=== PATIENT | female | born 1965 | race African-American/Black ===

== ENCOUNTER 2016-12-20 17:44 | Emergency (ER) | payer OTHER ==
[~2016-12-20] VITALS: Ht 157.5 cm; Wt 68.0 kg
[~2016-12-20 17:44] MED LIST: ATORVASTATIN CA10 MG ORAL; AZITHROMYCIN250 MG ORAL; BENAZEPRIL HCL5 MG ORAL; CLINDAMYCIN HC150 MG ORAL; GUAIFENESIN-CO118 M1 ORAL; IBUPROFEN600 MG ORAL; JANUVIA100 MG ORAL; METFORMIN HCL850 M1 ORAL; NORCO 5-325 TA1 EACH ORAL; PROMETHAZINE-C118 M1 ORAL
[2016-12-20 17:48] VITALS: BP 149/90
[2016-12-20] MEDS ORDERED: Albuterol ud Inhalation HHN ONE (18:00)
[2016-12-20 19:54] LABS: HEMATOCRIT 47.7 % (37.0-47.0); HEMOGLOBIN 15.2 G/DL (12.0-16.0); MEAN CORPUSCULAR VOLUME 89 FL (80-99); PLATELET COUNT 260 K/UL (150-450); RED BLOOD COUNT 5.37 M/UL (4.20-5.40); RED CELL DISTRIBUTION WIDTH 11.4 % (11.6-14.8); WHITE BLOOD COUNT 7.4 K/UL (4.8-10.8)
[2016-12-20 20:16] LABS: ANION GAP 9 mmol/L (5-15); BLOOD UREA NITROGEN 14 mg/dL (7-18); CARBON DIOXIDE 27 MMOL/L (21-32); CHLORIDE 107 MMOL/L (98-107); POTASSIUM 3.6 MMOL/L (3.5-5.1); SODIUM 143 MMOL/L (136-145)
[2016-12-20 20:23] VITALS: BP 122/91
[2016-12-20 20:29] LABS: ALANINE AMINOTRANSFERASE 16 U/L (12-78); ALBUMIN 3.5 G/DL (3.4-5.0); ALBUMIN/GLOBULIN RATIO 0.9 (1.0-2.7); ALKALINE PHOSPHATASE 54 U/L (46-116); ASPARTATE AMINO TRANSFERASE 12 U/L (15-37); BILIRUBIN,TOTAL 0.1 MG/DL (0.2-1.0)
[2016-12-20] MEDS ORDERED: LORATADINE10 M2 PO (20:36)
[2016-12-20] MEDS ORDERED: QVAR7.3 GM INH (20:36)
[2016-12-20] MEDS ORDERED: ZITHROMAX250 MG ORAL (20:36)
[2016-12-20] MEDS ORDERED: ALBUTEROL SULF8.5 GM INH (20:36)
[2016-12-20 20:48] VITALS: BP 122/91
--- NOTE | 2016-12-20 21:43 | Emergency Room Report ---
History of Present Illness General Chief Complaint: Chest Pain Source: Patient, Medical Record Present Illness HPI 51 y/o female c/o URI sxs x 5-6 weeks with chest pressure x 3 weeks. Assoc sxs include nasal congestion, cough, chest congestion, chest tightness, and shortness of breath. States she is not taking medications for her sxs. States she has a hx of DM but denies any hx of RI or CHF. States she feels like something is sitting on her chest. Denies any current n/v/f/c/d, abd pain, back pain, neck pain, photophobia, phonophobia, sore throat, or headache. Allergies: Coded Allergies: No Known Allergies (Unverified , 10/14/12) Patient History Past Medical History: see triage record Pertinent Family History: none Now: No Immunizations: UTD Reviewed Nursing Documentation: PMH: Agreed, PSxH: Agreed Nursing Documentation-PMH Past Medical History: No History, Except For Hx Cardiac Problems: No Hx Hypertension: Yes Hx Pacemaker: No Hx Asthma: No Hx COPD: No Hx Diabetes: Yes Hx Cancer: No Hx Gastrointestinal Problems: No Hx Dialysis: No History Of Psychiatric Problem: No Hx Neurological Problems: No Hx Cerebrovascular Accident: No Hx Seizures: No Review of Systems All Other Systems: negative except mentioned in HPI Physical Exam Vital Signs Date Time Temp Pulse Resp B/P (MAP) Pulse Ox O2 Delivery O2 Flow Rate FiO2 12/20/16 17:48 98.1 82 16 149/90 98 Room Air Sp02 EP Interpretation: reviewed, normal General Appearance: alert, GCS 15, non-toxic, mild distress, other - uncomfortable Head: normocephalic, atraumatic Eyes: bilateral eye normal inspection, bilateral eye PERRL ENT: hearing grossly normal, normal pharynx, no angioedema, normal voice, TMs + canals normal, nasal congestion Neck: full range of motion, supple/symm/no masses Respiratory: chest non-tender, lungs clear, normal breath sounds, speaking full sentences, other - increased respitory effort Cardiovascular #1: regular rate, rhythm, no edema Musculoskeletal: back normal, gait/station normal, normal range of motion, non- tender, calf tenderness Neurologic: alert, oriented x3, responsive, motor strength/tone normal, sensory intact, speech normal Psychiatric: judgement/insight normal, memory normal, mood/affect normal, no suicidal/homicidal ideation Skin: normal color, no rash, warm/dry, well hydrated Lymphatic: no adenopathy Medical Decision Making PA Attestation Dr. James is my supervising physician with whom patient management has been discussed with. Diagnostic Impression: Primary Impression: Community acquired pneumonia Qualified Codes: J18.9 - Pneumonia, unspecified organism ER Course Pt. presents to the ED c/o of cough and chest tightness Ddx considered but are not limited to CHF, RI, PE, sinusitis, bronchitis, pneumonia, viral upper respiratory tract infection Vital signs: are WNL, pt. is afebrile H&PE are most consistent with clinical pneumonia ORDERS / ED INTERVENTIONS: My Orders - JYOTHI ROSE Procedure Category Date Status Time Vital Signs CARE 12/20/16 Transmitted 17:55 Ekg Tracing Only CARD 12/20/16 Logged 17:55 Cardiac Monitoring CARE 12/20/16 Transmitted 17:55 Ed Pulse Oximetry CARE 12/20/16 Transmitted 17:55 Activity / Weight CARE 12/20/16 Transmitted Bearing 17:55 Xray Chest 1v RAD 12/20/16 Taken 17:55 Rhythm Strip CARE 12/20/16 Transmitted 17:55 Albuterol Hhn PHA 12/20/16 Complete (Proventil) 18:00 Hand Held Nebulizer RESP 12/20/16 Transmitted 17:55 Cbc W/ Differential LAB 12/20/16 Complete 18:33 CMP LAB 12/20/16 Complete 18:33 Troponin I LAB 12/20/16 Complete 18:33 Pro B Type Naturetic LAB 12/20/16 Complete Peptide 18:33 D-Dimer LAB 12/20/16 Complete 18:33 DISCHARGE: Patient was given albuterol treatment and states subjectively it did not change her symptoms. At this point we performed cardiac workup which was negative. Patient is sleeping at bedside comfortably and states she feels better. At this time pt. is stable for d/c to home. Will treat for clinical pneumonia although CXR appeared clear. Will provide printed patient care instructions, and any necessary prescriptions. Care plan and follow up instructions have been discussed with the patient prior to discharge. EKG Diagnostic Results Rate: normal Rhythm: NSR ST Segments: no acute changes Chest X-Ray Diagnostic Results Chest X-Ray Diagnostic Results : Chest X-Ray Ordered: Yes # of Views/Limited/Complete: 1 View Indication: Shortness of Breath EP Interpretation: Yes PA Xray: Interpretation reviewed, by supervising MD, and agrees with findings. Interpretation: no consolidation, no effusion, no pneumothorax, no acute cardiopulmonary disease Impression: Other - Clinical pneumonia Electronically Signed by: Jyothi Rose PA-C Last Vital Signs Date Time Temp Pulse Resp B/P (MAP) Pulse Ox O2 Delivery O2 Flow Rate FiO2 12/20/16 20:48 98.1 81 20 122/91 100 Room Air Disposition: HOME, SELF-CARE Condition: Improved Scripts Beclomethasone Dipropionate 40MCG Oral Inh (QVAR 40*) 7.3 Gm Aer.w.adap 2 PUFFS INH TWICE A DAY for 10 Days, #1 UNIT 0 Refills Prov: JYOTHI ROSE.AStephy 12/20/16 Loratadine (LORATADINE) 10 Mg Tablet 10 MG PO DAILY for 14 Days, #14 TAB Prov: JYOTHI ROSE.A. 12/20/16 Albuterol Sulfate* (ALBUTEROL SULFATE MDI*) 8.5 Gm Hfa.aer.ad 2 PUFF INH Q4H, #1 INH 0 Refills Prov: JYOTHI ROSE P.A. 12/20/16 Azithromycin* (ZITHROMAX*) 250 Mg Tablet 250 MG ORAL as directed for 5 Days, #1 PACK 0 Refills Take two tables once daily for 1 day, then one tablet once daily for 4 days. Prov: JYOTHI ROSE.AStephy 12/20/16 JYOTHI ROSE Dec 20, 2016 21:43
--- NOTE | 2016-12-21 09:48 | Diagnostic Imaging Report ---
Indication: COUGH Comparison: 03/09/2012 chest one view Findings: Single view of the chest shows a normal cardiomediastinal silhouette. Pulmonary vasculature is normal. Lung are clear. Soft tissues and osseous structures are within normal limits. Patient is slightly rotated. Impression: No acute chest disease
--- NOTE | 2016-12-28 15:54 | Cardiology Report ---
APPROVED REPORT EKG Measurement Heart [id number] [place] 154P44 [id number] Normal sinus rhythm Anterior infarct, age undetermined Abnormal ECG
--- NOTE | 2016-12-28 15:54 | Cardiology Report ---
APPROVED REPORT EKG Measurement Heart [id number] [place] 154P44 [id number] Normal sinus rhythm Anterior infarct, age undetermined Abnormal ECG
--- NOTE | 2016-12-28 15:54 | Cardiology Report ---
APPROVED REPORT EKG Measurement Heart [id number] [place] 154P44 [id number] Normal sinus rhythm Anterior infarct, age undetermined Abnormal ECG
== END 2016-12-20 20:55 | disposition home or self-care (01) ==
LOC: EMR 20:53
DX: J18.8 Other pneumonia, unspecified organism (principal); I10 Essential (primary) hypertension; E11.9 Type 2 diabetes mellitus without complications
CPT/HCPCS: 36415; 71010; 80053; 83880; 84484; 85007; 85025; 85379; 93005; 94664; 99284

== ENCOUNTER 2017-03-22 15:58 | Emergency (ER) | payer OTHER ==
[~2017-03-22] VITALS: Ht 154.9 cm; Wt 70.3 kg
[~2017-03-22 15:58] MED LIST changes: +ALBUTEROL SULF8.5 GM INH; +LORATADINE10 M2 PO; +QVAR7.3 GM INH; +ZITHROMAX250 MG ORAL
[2017-03-22] MEDS ORDERED: PRILOSEC10 M1 ORAL (16:35)
[2017-03-22] MEDS ORDERED: METFORMIN HCL500 M1 ORAL (16:35)
[2017-03-22 16:36] VITALS: BP 126/84
[2017-03-22 16:38] LABS: BASOPHILS % (AUTO) 1.5 % (0.0-2.0); EOSINOPHILS % (AUTO) 1.5 % (0.0-3.0); HEMATOCRIT 50.3 % (37.0-47.0); HEMOGLOBIN 16.9 G/DL (12.0-16.0); LYMPHOCYTES % (AUTO) 42.8 % (20.0-45.0); MEAN CORPUSCULAR VOLUME 85 FL (80-99); MONOCYTES % (AUTO) 5.5 % (1.0-10.0); NEUTROPHILS % (AUTO) 48.6 % (45.0-75.0); PLATELET COUNT 248 K/UL (150-450); RED BLOOD COUNT 5.93 M/UL (4.20-5.40); RED CELL DISTRIBUTION WIDTH 11.3 % (11.6-14.8); WHITE BLOOD COUNT 7.9 K/UL (4.8-10.8)
[2017-03-22 16:54] LABS: ANION GAP 10 mmol/L (5-15); BLOOD UREA NITROGEN 17 mg/dL (7-18); CALCIUM 9.5 MG/DL (8.5-10.1); CARBON DIOXIDE 25 MMOL/L (21-32); CHLORIDE 103 MMOL/L (98-107); CREATININE 0.9 MG/DL (0.55-1.30); SODIUM 138 MMOL/L (136-145)
[2017-03-22 16:58] LABS: ALANINE AMINOTRANSFERASE 18 U/L (12-78); ALBUMIN 3.8 G/DL (3.4-5.0); ALKALINE PHOSPHATASE 68 U/L (46-116); ASPARTATE AMINO TRANSFERASE 9 U/L (15-37); BILIRUBIN,TOTAL 0.2 MG/DL (0.2-1.0)
--- NOTE | 2017-03-22 17:42 | Emergency Room Report ---
History of Present Illness General Chief Complaint: General Complaint Source: Patient Present Illness HPI Patient 51 female presented after increased blood sugar. Patient gradual onset of symptoms. She noted her blood sugar to be somewhat elevated at work. Patient reported having increased urine frequency. She denies any fever. She reports having been a smoker. She reports sugar greater than 400 after working Allergies: Coded Allergies: No Known Allergies (Unverified , 10/14/12) Patient History Past Medical History: see triage record Past Surgical History: unable to obtain Reviewed Nursing Documentation: PMH: Agreed, PSxH: Agreed Nursing Documentation-PMH Hx Cardiac Problems: No Hx Hypertension: Yes Hx Pacemaker: No Hx Asthma: No Hx COPD: No Hx Diabetes: Yes Hx Cancer: No Hx Gastrointestinal Problems: No Hx Dialysis: No Hx Neurological Problems: No Hx Cerebrovascular Accident: No Hx Seizures: No Review of Systems All Other Systems: negative except mentioned in HPI Physical Exam Vital Signs Date Time Temp Pulse Resp B/P (MAP) Pulse Ox O2 Delivery O2 Flow Rate FiO2 03/22/17 16:03 97.9 97 18 126/84 98 Room Air Sp02 EP Interpretation: reviewed, normal General Appearance: normal inspection, well appearing, no apparent distress, alert, GCS 15 Head: atraumatic ENT: normal ENT inspection, hearing grossly normal, normal voice Neck: normal inspection, full range of motion, supple, no bony tend Respiratory: normal inspection, lungs clear, normal breath sounds, no respiratory distress, no retraction, no wheezing Cardiovascular #1: regular rate, rhythm, no edema Gastrointestinal: normal inspection, normal bowel sounds, non tender, soft, no guarding, no hernia Genitourinary: no CVA tenderness Musculoskeletal: normal inspection, back normal, normal range of motion Neurologic: normal inspection, alert, oriented x3, responsive, 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 Differential diagnosis included was not limited to have cellulitis, urinary infection, myocardial infarction, renal insufficiency among others. Because of complexity of patient's case laboratory testing and imaging studies were ordered. The patient noted to have a blood sugar slightly greater than 200. The patient started on IV fluids.The patient was noted to have unremarkable laboratory testing . The patient was advised dietary modification. Patient was advised followup with her private care physician. The patient reports having recurrent dental infections however there is no sign of dental infection at this time. The patient is advised to follow up with primary care doctor in 1- 2 days. Patient is advised to return if any worsening condition or if any changes in status that are concerning. This report is dictated with [employer] it lead software which may occasionally lead to discrepancies related to use of this software. Labs Test 03/22/17 16:33 03/22/17 16:40 White Blood Count 7.9 K/UL (4.8-10.8) Red Blood Count 5.93 M/UL (4.20-5.40) Hemoglobin 16.9 G/DL (12.0-16.0) Hematocrit 50.3 % (37.0-47.0) Mean Corpuscular Volume 85 FL (80-99) Mean Corpuscular Hemoglobin 28.5 PG (27.0-31.0) Mean Corpuscular Hemoglobin Concent 33.5 G/DL (32.0-36.0) Red Cell Distribution Width 11.3 % (11.6-14.8) Platelet Count 248 K/UL (150-450) Mean Platelet Volume 7.3 FL (6.5-10.1) Neutrophils (%) (Auto) 48.6 % (45.0-75.0) Lymphocytes (%) (Auto) 42.8 % (20.0-45.0) Monocytes (%) (Auto) 5.5 % (1.0-10.0) Eosinophils (%) (Auto) 1.5 % (0.0-3.0) Basophils (%) (Auto) 1.5 % (0.0-2.0) Sodium Level 138 MMOL/L (136-145) Potassium Level 4.0 MMOL/L (3.5-5.1) Chloride Level 103 MMOL/L (98-107) Carbon Dioxide Level 25 MMOL/L (21-32) Anion Gap 10 mmol/L (5-15) Blood Urea Nitrogen 17 mg/dL (7-18) Creatinine 0.9 MG/DL (0.55-1.30) Estimat Glomerular Filtration Rate > 60 mL/min (>60) Glucose Level 262 MG/DL (74-106) Calcium Level 9.5 MG/DL (8.5-10.1) Magnesium Level 1.5 MG/DL (1.8-2.4) Total Bilirubin 0.2 MG/DL (0.2-1.0) Aspartate Amino Transf (AST/SGOT) 9 U/L (15-37) Alanine Aminotransferase (ALT/SGPT) 18 U/L (12-78) Alkaline Phosphatase 68 U/L (46-116) Total Protein 7.6 G/DL (6.4-8.2) Albumin 3.8 G/DL (3.4-5.0) Globulin 3.8 g/dL Albumin/Globulin Ratio 1.0 (1.0-2.7) Acetone Level Negative (NEGATIVE) Last Vital Signs Date Time Temp Pulse Resp B/P (MAP) Pulse Ox O2 Delivery O2 Flow Rate FiO2 03/22/17 16:36 97.9 90 18 126/84 98 Room Air Status: improved Disposition: HOME, SELF-CARE Condition: Stable Referrals: [facility],REFERRING (PCP) Gunnar Vazquez Mar 22, 2017 17:42
[2017-03-22 17:45] LABS: APPEARANCE,URINE CLEAR; BILIRUBIN, URINE NEGATIVE (NEGATIVE); GLUCOSE, URINE (UA) 4+ (NEGATIVE); KETONES,URINE 3+ (NEGATIVE); LEUKOCYTE ESTERASE ,URINE NEGATIVE (NEGATIVE); NITRITE,URINE NEGATIVE (NEGATIVE); PH,URINE 5 (4.5-8.0); PROTEIN,URINE NEGATIVE (NEGATIVE); UROBILINOGEN,URINE NORMAL MG/DL (0.0-1.0)
[2017-03-22 17:47] LABS: COLOR,URINE YELLOW
[2017-03-22 18:18] VITALS: BP 122/71
[2017-03-22 18:22] VITALS: BP 122/71
--- NOTE | 2017-03-23 19:32 | Cardiology Report ---
APPROVED REPORT EKG Measurement Heart [id number] [place] [id number] Normal sinus rhythm Normal ECG
== END 2017-03-22 18:27 | disposition home or self-care (01) ==
LOC: EMR 16:35
DX: E11.65 Type 2 diabetes mellitus with hyperglycemia (principal); I10 Essential (primary) hypertension
CPT/HCPCS: 36415; 80053; 81003; 82009; 82962; 83735; 85025; 93005; 96361; 96374; 99284